=== PATIENT | male | born 2005 | race Caucasian/White ===

== ENCOUNTER 2024-01-30 13:15 | Emergency (ER) | payer BC, SELFPAY ==
[2024-01-30 13:19] VITALS: BP 143/90; BMI 23.1
--- NOTE | 2024-01-30 14:31 | ED.GENMED ---
History of Present Illness
General
Chief Complaint: Male Genito-Urinary Symptoms
Source: patient and family
Exam Limitations: none
Time Seen by Provider: 01/30/24 14:07
Nursing documentation reviewed up to this point in time: agreed with
Travel History
Have you had any contact with someone who has COVID-19?: No
Do you have any symptoms of coronavirus? Fever > 100 degrees, chills, cough, shortness of breath, sore throat, loss of taste or smell, muscle aches, or headache?: No
History of Present Illness
History of Present Illness:
Patient is a 18-year-old male who presents to the emergency department complaining of right testicular, right thigh and right abdominal pain for the past week and a half. Patient states it started with right testicle pain and has progressed.
Patient was initially placed on doxycycline for possible epididymitis and then was switched to amoxicillin because of being on Accutane. Patient has had a low-grade temperature to 100. Patient denies any nausea, vomiting or diarrhea. Patient
denies any dysuria, hematuria, urgency or frequency. Patient denies any previous history of similar episodes. Patient did have a decreased appetite but that seems to be getting better. Patient denies any recent injuries or illnesses. Patient
denies any discharge. Patient denies any heavy lifting or straining.
Past History
Past History
ED Past Medical History: None
ED Past Surgical History: None
Social History
Tobacco: Non-smoker
Alcohol: None
Review of Systems
Review of Systems
All Other Systems: ROS reviewed and negative except as documented in HPI and ROS
Constitutional: Reports fever and night sweats; Denies fatigue
EENT: Reports no symptoms
Respiratory: Reports no symptoms
Cardiac: Reports no symptoms
ABD/GI: Reports abdominal pain and anorexia; Denies nausea, vomiting, diarrhea or constipated
: Reports other (Right testicular pain); Denies dysuria, flank pain, urgency or bleeding
Musculoskeletal: Reports no symptoms; Denies back pain
Skin: Reports no symptoms
Neurological: Reports no symptoms
Hematologic/Lymphatic: Reports no symptoms
Phy Exam
Physical Exam
Physical Exam:
Physical Exam
General: No apparent distress, alert and appropriate, well nourished, well hydrated
HENT: Normocephalic, supple with no lymphadenopathy
Eyes: Clear sclera, conjuctiva without injection
Heart: Regular rhythm and rate. No S3, S4. No murmur
Lungs: No respiratory distress, no stridor, lung sounds clear and equal bilaterally
Abdomen: Soft, mild right-sided abdominal tenderness without guarding or rebound, no organomegaly, no CVA tenderness, BS good. Patient is circumcised and both testicles descended with good cremasterics bilaterally no palpable
mass or tenderness
Neuro: Alert and oriented x 3, CN II - XII intact, no motor focality, no cerebellar dysfunction
Skin: no rash
Psychiatric: well kept. interactive and cooperative
Extremities: No edema, cyanosis, tenderness, Good and equal peripheral pulses.
Scores
Heart Failure Risk
Heart Failure Risk Score: Not Applicable
Heart Score for Chest Pain Patients
STEMI patient?: Not applicable
Withdrawal Assessment of Alcohol
Withdrawal Assessment Completed?: Not applicable
Course
Orders/Labs/Results
Orders:
Orders
01/30/24 14:29
0.9% Sodium Chloride 1000 ml [Nss] 1,000 ml IV BOLUS
Iohexol [Omnipaque] See Protocol PO NOW STA
Ketorolac [Toradol] 15 mg IV NOW STA
US Scrotum Urgent
Comment:
Reason For Exam: right testicle pain
01/30/24 14:34
Complete Blood Count/With Diff Urgent
Comprehensive Metabolic Panel Urgent
Lyme Progressive Urgent
01/30/24 16:54
Urinalysis Reflex To Culture Urgent
Date Specimen was Collected: 01/30/24
Time Specimen was Collected: 16:52
Abnormal Lab Results
01/30/24
14:34
MCV 69.3 L fL
(80.0-94.0)
MCH 22.8 L pg
(27.0-31.0)
MCHC 32.8 L g/dL
(33.0-37.0)
RDW 14.6 H %
(11.5-14.5)
Albumin 5.2 H g/dl
(3.5-5.0)
01/30/24 14:34
01/30/24 14:34
Vital Signs
Initial and Last Documented VS:
Initial Vital Signs
Temp Pulse Resp BP Pulse Ox
97.6 F 81 16 143/90 100
01/30/24 13:19 01/30/24 13:19 01/30/24 13:19 01/30/24 13:19 01/30/24 13:19
Last Documented Vital Signs
Temp Pulse Resp BP Pulse Ox
97.6 F 67 17 125/64 100
01/30/24 13:19 01/30/24 16:50 01/30/24 16:50 01/30/24 16:50 01/30/24 16:50
*Radiology
Radiology exam reviewed: radiology read reviewed (right orchitis)
*Pulse Oximetry
Patient hypoxic: no
*EKG
Interpreted by ED Provider?: NA
*Security Screener Interpretation
Rate: Security Screener- N/A
*Critical Care Note
Total Time (30-74mins, 75-104mins- exclusive of procedures): Not Applicable
ED Attending Note
-
Portions of this chart may have been created with voice recognition software.� Occasional wrong word or��sound alike� substitutions may have occurred due to the inherent limitations of voice recognition software.
Discharge Plan
Departure
Patient Disposition: Home (Routine Discharge)
Date of Disposition: 01/30/24
Time of Disposition: 17:21
Patient with high blood pressure during this ER visit?: No
Condition: Good
Covid-19: Not Applicable
Discharge Problem:
Orchitis
Instructions: Epididymitis and Orchitis
Prescriptions:
New
ciprofloxacin HCl 500 mg tablet
500 mg PO BID Qty: 14 0RF
ketorolac 10 mg tablet
10 mg PO QID PRN (Reason: pain) Qty: 20 0RF
No Action
prednisone 10 MG tablet
10 mg PO DAILY Qty: 0 0RF
Rx Instructions:
4 pills daily x 2, 3 pills daily x 2, 2 pills daily x 2, 1 pill daily x 2. ; i.e. 1-3-1-3-2-2-1-1, dispense #20 pills.
epinephrine [EpiPen] 0.3 MG/0.3/SYRINGE auto-injector
0.3 mg IM ONCE PRN (Reason: severe allergic reaction) Qty: 1 0RF
dexmethylphenidate [Focalin XR] 10 MG capsule,ER biphasic 50-50
10 mg PO Daily
Referrals:
Chilo Vidal MD [Family Provider] - Follow up in 5-7 days
Activity Restrictions/Additional Instructions:
Stop the amoxicillin. Use an old-fashioned athletic supporter or what will keep your testicles pulled into your trunk
Interventions
Interventions:
*Risk Screen - Suicide Last Done: 01/30/24 13:19
*General Assessment Last Done: 01/30/24 15:04
*Neglect/Abuse Screening Last Done: 01/30/24 13:19
ED- Fall Risk Assessment Last Done: 01/30/24 15:07
*ED COVID-19 Vaccine History Last Done: 01/30/24 13:19
Discharge Date and Time
Print Language: LAO
[2024-01-30] MEDS: NSS 1000 IV (14:40)
[2024-01-30] MEDS: TORADOL 15 MG IV (14:53)
[2024-01-30] MEDS: OMNIPAQUE 50 ML PO (14:54)
[2024-01-30 14:59] LABS: % Basophils 0.9 % (0-2); % Eosinophils 3.5 % (0-6); % Immature Granulocytes 0.2 % (0-0.5); % Lymphocytes 34.5 % (20.5-51.1); % Monocytes 8.2 % (1.7-9.3); % Neutrophils 52.7 % (42.2-75.2); Absolute Basophils 0.1 10^3/uL (0-0.2); Absolute Eosinophils 0.2 10^3/uL (0-0.7); Absolute Lymphocytes 2.3 10^3/uL (1.2-3.4); Absolute Monocytes 0.5 10^3/uL (0.1-0.6); Absolute Neutrophils 3.5 10^3/uL (1.4-6.5); Hematocrit 40.2 % (39.0-52.0); Hemoglobin 13.2 g/dL (13.0-18.0); Mean Corp Hgb Conc. 32.8 g/dL (33.0-37.0); Mean Corpuscular Hgb 22.8 pg (27.0-31.0); Mean Corpuscular Volume 69.3 fL (80.0-94.0); Mean Platelet Volume 9.5 fL (7.4-10.4); Nucleated Red Blood Cells % 0 % (-); Platelet Count 271 10^3/uL (130-400); Red Cell Dist. Width 14.6 % (11.5-14.5); White Blood Cell Count 6.6 10^3/uL (4.8-10.8)
[2024-01-30 15:09] LABS: ALT (SGPT) 20 U/L (0-50); AST (SGOT) 28 U/L (17-59); Albumin 5.2 g/dl (3.5-5.0); Alkaline Phosphatase 69 U/L (38-126); Blood Urea Nitrogen 12 mg/dl (9-20); Carbon Dioxide 29 mmol/L (22-30); Chloride 102 mmol/L (98-107); Estimated Creatinine Clearance > 125 ml/min; Glucose 87 mg/dl (70-99); Potassium 4.4 mmol/L (3.5-5.1); Sodium 137 mmol/L (135-145); Total Bilirubin 0.9 mg/dl (0.2-1.3); Total Protein 8.2 g/dl (6.3-8.2); eGFR > 60.00
[2024-01-30 16:50] VITALS: BP 125/64
[2024-01-30 17:04] LABS: Urine Albumin Negative (Neg - Trace); Urine Bilirubin Negative (Negative); Urine Character Clear (Clear); Urine Color Yellow; Urine Glucose Negative (Negative); Urine Ketone Negative (Negative); Urine Leukocyte Negative (Negative); Urine Nitrite Negative (Negative); Urine Occult Blood Negative (Negative); Urine Urobilinogen Negative (Neg - 1+)
[2024-01-30 17:44] VITALS: BP 126/68
[2024-01-31 12:58] LABS: Lyme Antibody Screen, EIA Negative (Negative)
== END 2024-01-30 17:45 | disposition home or self-care (01) ==
LOC: EMR 13:15
PROVIDERS: EMERGENCY PHYSICIAN Emergency Medicine; FAMILY PHYSICIAN Family Medicine
DX: N45.2 Orchitis (principal)
CPT/HCPCS: 99285; 96374; 96361; 76870; 80053; 81003; 85025; 86618; 93976